=== PATIENT | male | born 1990 | race Caucasian/White ===

== ENCOUNTER 2018-02-04 19:21 | Emergency (ER) | payer OTHER ==
[2018-02-04] MEDS ORDERED: TDAP ADULT 0.5 ML INJ (BOOSTRIX) IM ONE ×3 (19:40→20:14)
[2018-02-04 20:08] VITALS: BP 135/86
--- NOTE | 2018-02-05 23:05 | EDPHY ---
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 He reports moderate pain and moderate bleeding from the laceration to the tip of his left 2nd finger. The bleeding stopped with direct pressure prior to arrival. He denies any other injuries or complaints. He drove by private vehicle here for further evaluation. ROS: Neuro: No numbness Musculoskeletal: No bony pain the affected finger. Cardiovascular: No pallor to the affected finger in 5 point ROS is otherwise negative. Past medical history: Otherwise healthy. Last tetanus was 7 years ago. 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 General: No acute distress Cardiac: Brisk capillary refill is intact throughout. Pulses are 2+ and symmetric in the affected extremity. Skin: No rash or pallor. Extremities: Atraumatic normal except for left 2nd finger Left 2nd finger: Patient is 1 cm full-thickness laceration to the tip of the 2nd finger well-approximated with no active bleeding. Neuro: Alert and oriented x3 with no sensorimotor deficits. Procedures: Digital block: After verbal consent, using a 50 50 mix of 0.5% Marcaine 2% plain lidocaine, 27 gauge needle, chlorhexidine scrub under sterile conditions- 3 injections were administered to the base of the affected finger, 8 mL with good effect. Patient tolerated this well. There were no complications. The wound is 1 cm. The wound was copiously irrigated with saline. The wound was explored for foreign bodies and none were found. The wound was prepped and draped in the normal sterile fashion. The wound was anesthetized using Digital block: The edges were reapproximated using 4 0 Prolene, 1 interrupted suture and 4 running sutures with good hemostasis and cosmesis. The patient tolerated the procedure well. There were no complications. Smoking Status: Never smoked Constitutional: Initial Vital Signs Temperature (C) 36.8 C 02/04/18 20:04 Heart Rate 76 02/04/18 20:04 Respiratory Rate 16 02/04/18 20:04 Blood Pressure 135/86 H 02/04/18 20:04 O2 Sat (%) 98 02/04/18 20:04 O2 Delivery Mode Room Air Allergies/Adverse Reactions: No Known Allergies Allergy (Unverified 02/04/18 20:03) Home Medications: Medication Instructions Recorded Ranitidine HCl [Zantac] 02/04/18 MDM/Departure - MDM Medications Given: Discontinued Medications Diphtheria/Tetanus/Acell Pertussis (Boostrix) 0.5 ml IM .ONCE ONE Stop: 02/04/18 20:10 Last Admin: 02/04/18 20:20 Dose: 0.5 ml - Depart Disposition: Home, Routine, Self-Care Clinical Impression: Finger laceration Qualifiers: Encounter type: initial encounter Finger: index finger Damage to nail status: without damage Foreign body presence: without foreign body Laterality: right Qualified Code(s): S61.210A - Laceration without foreign body of right index finger without damage to nail, initial encounter Condition: Good Instructions: Care For Your Stitches (ED), Finger Laceration (ED) Referrals: NONE *PRIMARY CARE P,. [Primary Care Provider] - As per Instructions
== END 2018-02-04 20:20 | disposition home or self-care (01) ==
LOC: CED 19:21
PROC: 0HQFXZZ Repair Right Hand Skin, External Approach (ICD-10-PCS; principal; 2018-02-04)
DX: S61.210A Laceration without foreign body of right index finger without damage to nail, initial encounter (principal); Z23 Encounter for immunization; W29.0XXA Contact with powered kitchen appliance, initial encounter; Y92.69 Other specified industrial and construction area as the place of occurrence of the external cause; Y99.0 Civilian activity done for income or pay; Y93.89 Activity, other specified

== ENCOUNTER 2018-04-20 15:56 | Emergency (ER) | payer SELFPAY ==
[2018-04-20] MEDS ORDERED: ONDANSETRON 4 MG/2 ML VIAL IVP ONE (16:04)
[2018-04-20] MEDS ORDERED: fentaNYL 100 MCG/2 ML INJ IVP ONE (16:04)
[2018-04-20] MEDS ORDERED: NS 1,000 ML IV ONE (16:04)
[2018-04-20] MEDS ORDERED: fentaNYL 100 MCG/2 ML INJ ONE (16:05)
[2018-04-20] MEDS ORDERED: ONDANSETRON 4 MG/2 ML VIAL ONE (16:06)
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
[2018-04-20] MEDS ORDERED: IOPAMIDOL (ISOVUE-300) 100 ML BTL ONE (16:25)
[2018-04-20] MEDS ORDERED: LET GEL TOPICAL 1 EA SYR TP ONE (17:37)
[2018-04-20 17:42] LABS: PLATELET COUNT 236 10^3/uL (150-400)
[2018-04-20 17:47] VITALS: BP 116/73
== END 2018-04-20 18:11 | disposition home or self-care (01) ==
LOC: CED 15:56
DX: S43.401A Unspecified sprain of right shoulder joint, initial encounter (principal); S40.811A Abrasion of right upper arm, initial encounter; V18.0XXA Pedal cycle driver injured in noncollision transport accident in nontraffic accident, initial encounter; Y92.410 Unspecified street and highway as the place of occurrence of the external cause; Y93.55 Activity, bike riding
CPT/HCPCS: 71045-PO; 73030-PO; 74177-PO; 80048-PO; 96374; J2405; J3010; Q9967